=== PATIENT | male | born 1990 | race Caucasian/White ===

== ENCOUNTER 2022-07-05 09:32 | Emergency (ER) | payer OTHER ==
[~2022-07-05] VITALS: Ht 177.8 cm; Wt 119.7 kg
[2022-07-05 09:38] VITALS: BP 119/82
[2022-07-05] MEDS ORDERED: LIDOCAINE 1% 500 MG/ 50 ML VIAL INJ ONE (09:50)
--- NOTE | 2022-07-05 09:50 | NUR ---
31M presents to ED with c/o laceration to right hand. Pt reports using a drill bit this morning, punctured right hand under 2nd digit, pt attempted to pull away causing a 3cm laceration. Pt reports minor pain, 1/10 on pain scale, with numbness to 2nd digit. Bleeding controlled; pt reports washing out laceration with water and alcohol prior to arrival.
[2022-07-05] MEDS ORDERED: LIDOCAINE MPF 1% 5 ML ONE (10:05)
--- NOTE | 2022-07-05 10:12 | NUR ---
R INDEX FINGER IRRIGATED WITH BETADINE AND NORMAL SALINE.
--- NOTE | 2022-07-05 10:15 | NUR ---
Dr. Pineda at bedside for laceration repair.
[2022-07-05] MEDS ORDERED: LIDOCAINE MPF 1% 10 MG/ML VIAL INJ ONE (10:20)
--- NOTE | 2022-07-05 10:20 | NUR ---
X 1 NON ADHERENT APPLIED TO R INDEX FINGER. + CMS. LARGE FROG FINGER SPLINT APPLIED TO R INDEX FINGER. + CMS AFTER APPLICATION.
[2022-07-05] MEDS ORDERED: CEPH-588 PO (10:48)
--- NOTE | 2022-07-05 10:55 | NUR ---
Patient discharged with v/s stable. Written and verbal after care instructions about laceration care given and explained. Patient alert, oriented and verbalized understanding of instructions. Ambulatory with steady gait. All questions addressed prior to discharge. ID band removed. Patient advised to follow up with PMD. Rx of Keflex given. Patient educated on indication of medication including possible reaction and side effects. Opportunity to ask questions provided and answered.
== END 2022-07-05 10:55 | disposition home or self-care (01) ==
LOC: MED 09:32
DX: S61.210A Laceration without foreign body of right index finger without damage to nail, initial encounter (principal); Z79.899 Other long term (current) drug therapy; W22.8XXA Striking against or struck by other objects, initial encounter; Y93.89 Activity, other specified; Y92.89 Other specified places as the place of occurrence of the external cause; Y99.8 Other external cause status
CPT/HCPCS: 12002; 73130; 90471; 90715; 99283; J2001